=== PATIENT | female | born 1975 | race Caucasian/White ===

== ENCOUNTER 2024-02-10 13:26 | Emergency (ER) | payer BC ==
[2024-02-10 13:31] VITALS: BP 115/76; PULSE 102; RESP 16; TEMP 98.8; BMI 29.0
== END 2024-02-10 14:24 | disposition home or self-care (01) ==
LOC: FER 13:26
PROC: 0J9R00Z Drainage of Left Foot Subcutaneous Tissue and Fascia with Drainage Device, Open Approach (ICD-10-PCS; principal; 2024-02-10)
DX: S90.822A Blister (nonthermal), left foot, initial encounter (principal); X58.XXXA Exposure to other specified factors, initial encounter
CPT/HCPCS: 73630-TC-LT; 87070; 87205; 99283-25